=== PATIENT | female | born 1965 | race Caucasian/White ===

== ENCOUNTER → 2018-04-24 15:09 | Outpatient (CLI) | payer BC, SELFPAY ==
--- NOTE | 2018-04-24 | DI.CT.S_ITS ---
PROCEDURE: CT LUMBAR SPINE WO CON INDICATIONS: LUMBAR SPINE PAIN TECHNIQUE: Noncontrast 3 mm thick sections acquired from the T12 level to the sacrum. Sagittal and coronal reformats were constructed. For radiation dose reduction, the following was used: automated exposure control. COMPARISON: [facility], MR, MR LUMBAR SPINE WITHOUT CONTRAST, 04/17/2018, 10:46. FINDINGS: Image quality: Excellent. Bones: There is approximate 82% compression deformity at L3 with minimal retropulsion, unchanged. There is moderate to severe disc space narrowing at L2-3 and L3-4. Trace retrolisthesis is present of L4 on L5. Posterior osteophytes are present at T11-12 and T12-L1. Disc bulges are present all levels of the lumbar spine. There is mild to moderate spinal stenosis at L1-L2, L5-S1. It is noted there is moderate to severe spinal stenosis at T12-L1, severe at L1-2 secondary to posterior osteophytes. Mild bilateral foraminal narrowing is present T11-T12, moderate left, mild right T12-L1, moderate bilateral L4-5 and severe bilateral L5-S1 with slight effacement on the left. Multilevel facet hypertrophy is present. Soft tissues: No retroperitoneal masses or hematomas. Visualized aorta is normal in caliber. IMPRESSION: 1. Unchanged L3 compression deformity as described above. 2. Multiple degenerative changes including disc bulges, spinal stenosis and foraminal narrowing overall most severe at T11-12, T12-L1 and L5-S1. It is noted that significant posterior osteophytes are causing prominent spinal stenosis at T12-L1 and T11-12. Dictated by: Ayesha Harris M.D. on 04/24/2018 at 17:20 Approved by: Ayesha Harris M.D. on 04/24/2018 at 17:26
== END ==
PROVIDERS: Visit Provider Orthopaedic Surgery Orthopaedic Surgery of the Spine
DX: M54.5 Low back pain (principal); M47.814 Spondylosis without myelopathy or radiculopathy, thoracic region; M47.815 Spondylosis without myelopathy or radiculopathy, thoracolumbar region; M47.817 Spondylosis without myelopathy or radiculopathy, lumbosacral region; M48.04 Spinal stenosis, thoracic region; M48.05 Spinal stenosis, thoracolumbar region
CPT/HCPCS: 72131

== ENCOUNTER → 2018-05-12 15:42 | Outpatient (CLI) | payer BC, SELFPAY ==
[2018-05-12 16:46] LABS: Add Manual Diff / Slide Review NO; Basophils Percent Auto 0.7 % (0-2); Eosinophils Percent Auto 1.5 % (2-4); Hematocrit 37.2 % (36-46); Hemoglobin 12.6 g/dL (12.0-16.0); Lymphocytes Percent Auto 42.2 % (25-40); Mean Corpuscular HGB Conc 33.7 % (30-36); Mean Corpuscular Hemoglobin 33.1 PG (26-34); Monocytes Percent Auto 7.4 % (3-14); Neutrophils Absolute Auto 3300 /uL (1500-7000); Neutrophils Percent Auto 48.2 % (50-75); Platelet Count 253 X10^3/uL (150-400); Red Cell Distribution Width 12.1 % (11.6-14.8); White Blood Cell Count 6.9 X10^3/uL (4.5-11.0)
[2018-05-12 17:17] LABS: Blood Urea Nitrogen 10 mg/dL (7-17); Calcium 9.6 mg/dL (8.4-10.2); Carbon Dioxide 28 mmol/L (22-32); Chloride 101 mmol/L (98-107); Estimated Glomerular Filt Rate 57.8 mL/min (>60); Glucose 96 mg/dL (70-100); HEMOLYSIS < 15 (0-50); Potassium 3.8 mmol/L (3.4-5.1); Sodium 140 mmol/L (137-145)
== END ==
PROVIDERS: Visit Provider Orthopaedic Surgery Orthopaedic Surgery of the Spine
DX: Z01.811 Encounter for preprocedural respiratory examination (principal)
CPT/HCPCS: 36415; 80048; 85025; 93005

== ENCOUNTER 2018-05-26 10:44 | Inpatient (IN) | payer BC, SELFPAY ==
[2018-05-12 08:47] VITALS: BMI 34.2
[2018-05-26] VITALS (15 sets, daily range): BP systolic 100–155; BP diastolic 56–93; PULSE 65–93; RESP 9–20; TEMP 36.4–36.8; O2SAT 93–100; BMI 34.2
--- NOTE | 2018-05-26 | DI.RAD.S_ITS ---
PROCEDURE: XR LUMBAR SPINE 2-3V INDICATIONS: L4-5 L5-S1 TLIF TECHNIQUE: Fluoroscopic images were obtained during an operative procedure and submitted for interpretation following the completion of the procedure. COMPARISON: [facility], [place], CT LUMBAR SPINE WO CON, 04/24/2018, 15:09. FINDINGS: These fluoroscopic images were performed for intraoperative localization. On these images, bilateral pedicle screws are seen at the L4, L5, and S1 levels. Vertical fixation rods are seen. Disc spacers are seen at L4-L5 and L5-S1. Please correlate with intraoperative findings. IMPRESSION: Normal intraoperative examination. Dictated by: Rigoberto Fraire M.D. on 05/26/2018 at 15:59 Approved by: Rigoberto Fraire M.D. on 05/26/2018 at 16:01
[2018-05-26] MEDS: LACTATED RINGERS 1,000 ML 42 ML IV ×3 (11:33→17:35)
[2018-05-26] MEDS: FAMOTIDINE 20 MG/50 ML PIGGYBACK 200 MG IV (11:34)
--- NOTE | 2018-05-26 12:32 | PM.PREOP ---
Pre-operative Note Interval Note History & Physical reviewed/Exam performed by Physician: Yes Changes to H&P: No
[2018-05-26] MEDS: HYDROCODONE/ACET 5/325 TABLET 2 TAB PO (12:54)
--- NOTE | 2018-05-26 12:54 | SUR.PREOP ---
Medicated with norco x [address] schultz's [id number].
[2018-05-26] MEDS: CEFAZOLIN 2 GM/100 ML FROZ.PIGGY IV ×2 (13:00→17:02)
--- NOTE | 2018-05-26 13:41 | SUR.OPER ---
Prone on spine table, head in foam head support, padded chest and pelvic supports, gel pad at knees, lower legs supported by pillows; nipples, genitalia and toes free of pressure, arms secured on foam padded arm boards at <90 degrees abduction. Tape over blanket at thigh secured to table.
[2018-05-26] MEDS: BUPIVACAINE LIPOSOME 266 MG/20 ML VIAL INJ (14:27)
[2018-05-26] MEDS: BUPIVACAINE 0.25% W/ EPI VIAL 30 ML INJ (14:28)
--- NOTE | 2018-05-26 17:20 | P.OP_ITS ---
Operative Date/Time/Diagnoses Date of procedure: 05/26/18 Time of procedure: 13:13 Pre-op diagnosis: 1. L4-5, L5-S1 history of laminectomy 2. L4-5 pseudoarthrosis with hx of fusion 3. L4-5, L5-S1 spinal stenosis Post-op diagnosis: same Procedure & Clinicians Procedure: 1. L4-5, L5-S1 Postero-lateral and posterior interbody fusion 2. L4-5, L5-S1 interbody cage placement. 3. L4-5, L5-S1 decompressive laminectomy with bilateral facetecomies 4. L4-5, L5-S1 Posterior segmental instrumentation 5. [place] of bone marrow from iliac crest 6. Utilization of microsurgical technique and operating microscope Same procedure as scheduled: Yes Indications: Patient has been having chronic back pain and worsening lumbar radiculopathy. Patient had previous fusion decompression and then hardware removal surgery multiple times with worsening pain difficulty walking. Patient failed multiple conservative management with worsening pain weakness and numbness in her lower extremity. Patient has been having difficulty performing activity of daily living. After discussing risks benefits of treatment options, patient elected proceed with surgery. Surgeon: Jad Bahena Van Helper: Katerina Roberts Click Yes if Unassisted: No Anesthesia Type: General Operative Notes Closure Type: primary Specimen(s): none sent Implants & Drains: Globus revolve screws, Rise cages Applied: catheter Estimated Blood Loss (mL): 100 Blood products transfused: none Procedure in detail: Patient was seen in the preoperative area. Risks and benefits of the surgery was discussed with the patient. Informed consent was obtained from the patient and placed in the chart. Surgical site was marked. Patient was taken to the operative room. General anesthesia was administered. Prophylactic antibiotic was given to the patient less than 30 min before the incision was made. Patient was placed into a prone position on the Moises table. Patient's back was then prepped and draped in the sterile fashion. Time- out was performed at this time. Using AP and lateral C-arm imaging the interval between L4-S1 was identified and marked on patient's back. A 2 inch incision 2 in from midline was made on the left side first. The fascia was incised in line with skin incision. Globus MARS retractors was placed inside the incision and docked onto the L4 and L5 lamina. Using microsurgical technique and operating microscope, a L4 and L5 laminectomy and L4-5 L5-S1 facetectomy was performed using a Kerrison rongeur. Patient was found to have significant amount of attempted fusion mass L4-5 level during the process of decompression. The fusion bone was debrided until the facet joint was visualized at L4-5 level. Upon stressing the facet joint was found to be mobile and the pseudoarthrosis at L4-5 was confirmed. During the process of decompression more than 75% of bilateral L4-5 L5-S1 facets were removed in order to decompress the spinal canal and the lateral recess. The L4- 5 L5-S1 level was grossly unstable after the decompression was completed and requiring the fusion procedure. The disc space at L4-5, L5-S1 was identified. And a total diskectomy was performed at L4-5, L5-S1 level. The endplates were decorticated using a rasp and shaver. The total diskectomy and decortication was performed at L4-5, L5-S1 level in order to to accomplish a L4-5, L5-S1 fusion. The local bone from the laminectomy and facetectomy was saved for local bone grafting. After the total diskectomy and decortication was completed , Globus viacell bone graft material was combined with local bone that was harvested earlier. At this time, a separate skin is incision was made over the iliac crest. A Jamshidi needle was inserted into the iliac crest through a separate skin incision. 5 cc of bone marrow aspiration was obtained through the separate skin incision using a Jamshidi needle from the iliac crest. The bone marrow aspiration was combined with local bone and the via cell bone grafting material. The bone grafting material was placed into the L4-5, L5-S1 interbody space along with two cages, one expandable cage at each level. The cages were expanded to their maximum height using the torque limiting screwdriver. At this time a mirror image incision was made on the right side. The fascia was incised in line with the skin incision. Globus MARS retractor was inserted and docked onto the L4-5, L5-S1 posterolateral gutter. Using the power drill, posterior-lateral decortication was performed at L4-5, L5-S1 level until bleeding cortical bone was identified. The remaining bone grafting material was placed into the L4-5 L5-S1 posterior lateral gutter he order to accomplish posterolateral fusion at the L4-5 L5-S1 levels. Using the double C-arm technique, pedicle screws were placed into the L4, L5, S1 pedicles bilaterally. This was done by placing the Jamshidi needle into the pedicles, then placing the guidewires over the Jamshidi needle, and finally placing the cannulated screws over the guidewires bilaterally. After the pedicle screws were placed, 2 titanium rods was locked into the heads of the pedicle screws using locking caps and torque limiting screwdriver. Total 6 pedicles screws were placed. After all the hardware was placed, and confirmed with AP and lateral C-arm imaging, the wound was then irrigated with sterile normal saline and packed with Ray-Deepika gauze for 3 min to accomplish hemostasis. After the gauze was removed the deep fascia was closed with #1 Vicryl suture. The subcutaneous layer was closed with 2-0 Vicryl. The skin was closed with skin fe. Patient tolerated the procedure well. There were no complications. Complications: none Condition: stable Disposition: PACU Plan for aftercare: Admit to inpatient hospital
[2018-05-26] MEDS: LORazepam 2 MG/ML SYRINGE 0.25 MG IV ×2 (17:22→17:50)
[2018-05-26] MEDS: hydrOXYzine 50 MG/ML INJ 25 MG IM (17:31)
--- NOTE | 2018-05-26 18:04 | SUR.PHASEI ---
Ekg done per Dr. Irizarry. Dr. Irizarry shown EKG results, no new orderrs.
--- NOTE | 2018-05-26 18:40 | SUR.PHASEI ---
Pt transferred to the floor on o2 and pulse ox. Report to Sarah. VS stable. Sats 94-99% RA. IV saline locked. Azul and DAVE checked with RN. Kyree funze. Belongings bag with patient. Pt reporting pain, able to joke with staff.
[2018-05-26] MEDS: HYDROMORPHONE 0.5 MG INJ IV ×2 (18:55→20:43)
[2018-05-26] MEDS: SODIUM CHLORIDE 0.9% 1,000 ML 100 ML IV (18:58)
--- NOTE | 2018-05-26 20:36 | PC.NURSE ---
Evening shift 1829: Pt arrived on unit drowsy. Safe hand off from CLIENT EXPERIENCE SPECIALIST. Safety checks done. Pt is a/ox4 but closes eyes during conversation. Pt currently on RA. Ice pack applied to incision. 1854: Pain medication given by WILIAM Arce. Pt O2 decreased to high 80s low 90s. Pt placed on 2L NC. 1929: Pt weaned off of NC 1950: Pt placed back on 2L NC after O2 decreased to mid 80s. Pt continues to complain of 10/10 pain. Education done on opiates and respiratory depression. Pt stated she doesn't care if she stops breathing. Reenforced we will not have her in respiratory distress r/t narcotics. Pt left alone and drifted off to sleep after a couple of minutes.
[2018-05-26] MEDS: PRAVASTATIN 20 MG TABLET PO (21:26)
[2018-05-26] MEDS: hydrOXYzine pamoate 25 MG CAPSULE PO (21:26)
[2018-05-26] MEDS: SENNOSIDES 8.6 MG TABLET 17.2 MG PO (21:26)
[2018-05-26] MEDS: DOCUSATE 100 MG CAPSULE PO (21:26)
[2018-05-26] MEDS: OXYCODONE IR 5 MG TABLET 10 MG PO (21:29)
[2018-05-27] VITALS (7 sets, daily range): BP systolic 111–128; BP diastolic 45–71; PULSE 86–98; RESP 15–20; TEMP 36.9–37.8; O2SAT 95–100
[2018-05-27] MEDS: ACETAMINOPHEN 325 MG TABLET 650 MG PO (00:15)
[2018-05-27] MEDS: OXYCODONE IR 5 MG TABLET 10 MG PO ×2 (00:29→03:41)
[2018-05-27] MEDS: hydrOXYzine pamoate 25 MG CAPSULE PO ×2 (01:43→06:08)
[2018-05-27] MEDS: CEFAZOLIN 2 GM/100 ML FROZ.PIGGY IV ×2 (01:44→11:27)
[2018-05-27] MEDS: HYDROMORPHONE 0.5 MG INJ IV (02:20)
[2018-05-27] MEDS: SODIUM CHLORIDE 0.9% 1,000 ML 100 ML IV ×2 (06:00→16:54)
[2018-05-27] MEDS: LEVOTHYROXINE 75 MCG TABLET PO (06:08)
[2018-05-27 06:17] LABS: Hematocrit 29.9 % (36-46); Hemoglobin 10.4 g/dL (12.0-16.0)
--- NOTE | 2018-05-27 08:35 | PM.PNPO.1 ---
Subjective Date Patient Seen: 05/27/18 Time Patient Seen: 08:35 Interval history: POD #1 s/p lumbar fusion with Dr. Bahena. Patient states she had significant pain last night. Her back pain is an 8/10 this AM. Prior to surgery she was on [place] 10mg. She notes left leg numbness when prior to surgery it was tingling. She has her landry in place. She has not been up with PT yet. Exam Vital Signs (past 8 hours): - 05/27/18 05:30 05/27/18 07:44 Temperature 98.4 F 98.5 F Pulse Rate 86 94 H Respiratory Rate 20 16 Blood Pressure 114/45 L 116/70 Pulse Oximetry 100 96 Oxygen Delivery Method Nasal Cannula Oxygen Flow Rate 2 Narrative Exam Narrative: Patient lying in bed in NAD. She is alert and oriented X3. Dressing on back is CDI. Calves are soft, compressible, and nontender bilaterally. Pulses are symmetrical. Numbness at left lateral foot. Objective Labs Result Diagrams: 05/27/18 05:43 Labs: Laboratory Results - last 24 hr 05/27/18 05:43 Hgb 10.4 L Hct 29.9 L Assessment & Plan Post-op (1) S/P lumbar fusion: Current Visit: Yes Status: Acute Postoperative Procedures Operation Date: 05/26/18 12:45 Actual Procedures Side Surgeon p L4-5, L5-S1 TLIF w/Posterior Instru. Jad Bahena MD Patient will ambulate with PT today. No excessive bending, lifting, or twisting. Pain medication changed to dilaudid, increased vistaril to 50mg, and tylenol scheduled. Patient will likely DC in next 2-3 days if mobilizing safely and pain adequately controlled. Quality VTE Deep Vein Thrombosis/Pulmonary Embolism Present on Admission: No
[2018-05-27] MEDS: HYDROMORPHONE 2 MG TABLET 4 MG PO ×3 (09:24→20:43)
--- NOTE | 2018-05-27 10:52 | PC.NURSE ---
Pt droswy, moaning when entering the room attentive at bedside. Pt wanting pain meds, stating pain is 10/10. Discussed plan of care and meds for the day. New pain med orders written and implemented. Pt postioned to comfort. heading home for a time pt positioned to the right side high on hip ice to back and warm blankets to front. Pillows applied as asked by pt. states pt more restfull.
--- NOTE | 2018-05-27 11:27 | PT.IPTN ---
Current Diagnoses Spondylolisthesis, lumbar region (05/26/18) Other spondylosis with radiculopathy, lumbar region (05/26/18) Spinal stenosis, lumbar region without neurogenic claudication (05/26/18) Arthrodesis status (05/26/18) Surgery Performed Operation Date: 05/26/18 12:45 Actual Procedures p L4-5, L5-S1 TLIF w/Posterior Instru. - Jad Bahena MD Physical Therapy Treatment Note M2 PT-IP Current Condition Start: 05/27/18 14:21 Freq: NEEDED Status: Active Protocol: Document 05/27/18 11:27 AB (Rec: 05/27/18 14:27 AB [id number]) Physical Therapy Current Condition Current Condition Evaluation Date 05/27/18 Treatment Diagnosis s/p L4-5, L5S1 posterolat/post interbody fusion/lami; difficulty in walking Onset Date 05/26/18 Precautions Lumbar Precautions Log Roll No Twisting Limit Bending Lifting Restriction of 10 lbs Gait Belt above Incisional Area M3 PT-IP Subjective Start: 05/27/18 14:21 Freq: NEEDED Status: Active Protocol: Document 05/27/18 11:27 AB (Rec: 05/27/18 14:27 AB [id number]) Subjective Physical Therapy Visit Type Type Patient Refusal Notes pt refused PT eval this morning due to c/o 12/10 pain despite pain meds. agreed to do PT this afternoon after next pain meds given. obtained pt's PLOF and home set up.
[2018-05-27] MEDS: ASCORBIC ACID 500 MG TABLET PO ×2 (11:28→22:26)
[2018-05-27] MEDS: ACETAMINOPHEN 325 MG TABLET 975 MG PO ×3 (11:28→20:44)
[2018-05-27] MEDS: DOCUSATE 100 MG CAPSULE PO ×2 (11:28→22:26)
[2018-05-27] MEDS: LOSARTAN 50 MG TABLET 100 MG PO (13:26)
[2018-05-27] MEDS: hydroCHLOROthiazide 25 MG TABLET PO (13:27)
[2018-05-27] MEDS: HYDROMORPHONE 2 MG TABLET PO (13:27)
--- NOTE | 2018-05-27 13:30 | PT.IIE ---
Current Diagnoses Spondylolisthesis, lumbar region (05/26/18) Other spondylosis with radiculopathy, lumbar region (05/26/18) Spinal stenosis, lumbar region without neurogenic claudication (05/26/18) Arthrodesis status (05/26/18) Surgery Performed Operation Date: 05/26/18 12:45 Actual Procedures p L4-5, L5-S1 TLIF w/Posterior Instru. - Jad Bahena MD Surgical History (Last Updated 05/12/18 @ 09:12 by Malini Brito RN) History of bilateral carpal tunnel release (Acute) History of delivery (Acute) History of lumbar laminectomy (Acute ~1985) S/P lumbar fusion (Acute ~1979) Medical History (Last Updated 05/12/18 @ 09:12 by Malini Brito RN) Granuloma annulare (Acute) H/O: hysterectomy (Acute ~2007) HTN (hypertension) (Acute) Hyperlipidemia (Acute) Hypothyroidism (Acute) Numbness and tingling (Acute) Physical Therapy Inpatient Evaluation/Re-Eval M1 PT/OT-IP Prior Functional Status Start: 05/27/18 14:21 Freq: NEEDED Status: Active Protocol: Document 05/27/18 13:30 AB (Rec: 05/27/18 15:15 AB [id number]) Medical Review Prior Functional Status Medical History Reviewed Yes Communication able to make needs known Mobility and Gait stated that she is independent with all mobilities and ambulation without AD Social History Household Members spouse Living Arrangements RV Number of Floors (Floors) One Floor Number of Stairs To Enter/Railing? stated that she lives in a motor home with 5 steps to enter with L rail ascending; motor home is parked at her mother's lot and pt's mother stated that she can help pt as well. Home Environment High Toilet Tub/Shower Home Equipment Front Wheel Walker Grab Bars Near Toilet Additional Social History Comment pt's mother stated that she has a FWW for pt to use. ( will bring it tomorrow for adjustment or to determine if appropriate for pt) M2 PT-IP Current Condition Start: 05/27/18 14:21 Freq: NEEDED Status: Active Protocol: Document 05/27/18 13:30 AB (Rec: 05/27/18 15:12 AB [id number]) Physical Therapy Current Condition Current Condition Evaluation Date 05/27/18 Treatment Diagnosis L4-5, L5S1 posterolateral/last fusion/lami; diff in walking Onset Date 05/26/18 Precautions Lumbar Precautions Log Roll No Twisting Limit Bending Lifting Restriction of 10 lbs Gait Belt above Incisional Area Other Precautions check BP M3 PT-IP Subjective Start: 05/27/18 14:21 Freq: NEEDED Status: Active Protocol: Document 05/27/18 13:30 AB (Rec: 05/27/18 15:12 AB [id number]) Subjective Physical Therapy Visit Type Type Initial Evaluation Visit Start Time 13:30 Visit Stop Time 14:20 Total Visit Minutes 50 Number of REFLECTOR DRILLER AND DEBURRER Visits 0 Physical Therapy Visit Comments Patient Comments pt agreed to sit up Therapy Pain Assessment Pain When Pain Assessed At Rest Pain Present Pain Present Pain Reported Location Lower Back Intensity 5 Scale Used increase with movement Pain Behaviors Calling Out Guarding Pain Management Techniques Apply Cold Modification of Treatment Re-positioning Timing of Activity with Medications M4 PT-IP Mobility and Gait Start: 05/27/18 14:21 Freq: NEEDED Status: Active Protocol: Document 05/27/18 13:30 AB (Rec: 05/27/18 15:12 AB [id number]) PT-Bed Mobility Assessment Rolling Type of Rolling Log Rolling Level of Assist Maximal Assistance 2 Person Assistance Supine to Sit Supine to Sit Total Assistance 2 Person Assistance Bedrails Sit to Supine Sit to Supine Total Assistance 2 Person Assistance Bedrails Scooting Scooting to Edge of Bed Dependent Scooting Up and Down in Bed Dependent PT-Transfer Assessment Comments Mobility Comments BP supine: 102/64. pt with c/o increase back pain with mobility with increase muscle guarding requiring total A with log rolling and supine to sit. pt sat on EOB with initial max A. repostioned pt and was able sit min A and cues. c/o dizziness and sweating. BP checked: 56/36. assisted pt back in bed requiring total A x 2 log roll sit to supine. required total A x 2 for scooting and positioning in bed. BP in supine with LE elevated: 96/55 . ice pack provided. call light within reach. BP checked again: 102/73. educated pt on importance of being upright and to try to have HOB elevated later on. pt agreed. Gait Assessment Comments Gait Comments unable at this time PT-Balance Assessment Sitting Balance and Reactions Static Sitting Balance Ability Fair Dynamic Sitting Balance Ability Poor M5 PT-IP Objective Assessments Start: 05/27/18 14:21 Freq: NEEDED Status: Active Protocol: Document 05/27/18 13:30 AB (Rec: 05/27/18 15:12 AB [id number]) Orientation Orientation/Cognition Level of Alertness Alert Orientation Name Age Birthday Place Situation Language Function Ability No Deficits Noted Safety Awareness Decreased Safety Awareness Gross Range of Motion Lower Extremity ROM Assessment Within Functional Limits Strength Lower Extremity Strength Assessment Bilaterally Impaired Hip 3-/5 Knee 3-/5 Comments Strength Comments pain limiting movement on BLE Sensation Assessment Sensation Gross Sensation Left LE Impaired Sensation Description Numbness Comments Sensation Comments c/o numbness on RLE M6 PT-IP Treatment Start: 05/27/18 14:21 Freq: NEEDED Status: Active Protocol: Document 05/27/18 13:30 AB (Rec: 05/27/18 15:12 AB [id number]) Physical Therapy Treatment Education Education Provided Precautions Weight Bearing Status Post-Op Packet Safety M7 PT-IP Assessment and Plan Start: 05/27/18 14:21 Freq: NEEDED Status: Active Protocol: Document 05/27/18 13:30 AB (Rec: 05/27/18 15:12 AB [id number]) PT Summary Assessment and Plan Potential Rehabilitation Potential Fair Status of Condition at Evaluation Evolving Summary Impairments Pain ROM Strength Balance Coordination Sensation Tone Bed Mobility Transfers Gait Activity Tolerance Assessment Summary pt requiring total A x 2 with mobility at this time with c/o increase pain during movement . pt unable to tolerate much activity today with decrease in BP noted in sitting on EOB 56/36. d/c plan depending on progress but pt at this time will require SNF rehab to improve strength and function. informed pt and spouse regarding SNF recommendation at this time and agreed. will continue to assess. Goals Bed Mobility Goal Standby Assistance Transfer Goal Standby Assistance Front Wheeled Walker Gait Goal Standby Assistance Front Wheel Walker Gait Distance 150 Other Goals up/down 5 steps with L rail ascending CGA Days to Meet Goals 5 Frequency of Treatment Frequency Of Treatment Twice a Day Treatment Plan Physical Therapy Treatment Plan Bed Mobility Training Transfer Training Gait Training Therapeutic Exercise Balance Retraining Post Op Education Discharge Planning Hot or Cold Pack Neuromuscular Re-ed Coordination Retraining Manual Therapy Other Recommendations and Next Treatment transfers, ambulation Focus Recommendations To Nursing Amount of Assist Needed PT/OT Assist Only Mechanical Lift Discharge Recommendations PT Discharge Recommendations SNF Rehab
--- NOTE | 2018-05-27 15:03 | CM.IDA ---
Attempted DCP Assessment today; pt loudly complaining of pain in room; spouse present. According to nurse coordinator Ivonne, w/ PMH that includes ETOH and narcotic dependence. Pain control has been an issue so far. Pt refused PT today. Will plan another attempt at assessment. Likely home w/spouse when pain controlled and medically cleared. [facility] Discharge Planning/Care Management CM Discharge Assessment Start: 05/27/18 15:00 Freq: Status: Active Protocol: Document 05/27/18 15:00 LUIS (Rec: 05/27/18 15:03 LUIS [id number]) Discharge Planning Assessment Assigned Safety Representative JACKY Horton DPOA/Assigned Designee Name Carmelo Montes De Oca, spouse Contact Information [phone] Advance Directives? No: Declines further information History Provided By Patient Prior Living Arrangements RV Household Members spouse Independent with ADL's PLOF ? Is patient alert and oriented? Yes Comment Unknown at this time. Hopefully DC home to RV w/ spouse to assist. Discharge Plan Home Transportation Arrangement Spouse Review Status In Process
--- NOTE | 2018-05-27 16:22 | OT.IP.EVAL ---
Current Diagnoses Spondylolisthesis, lumbar region (05/26/18) Other spondylosis with radiculopathy, lumbar region (05/26/18) Spinal stenosis, lumbar region without neurogenic claudication (05/26/18) Arthrodesis status (05/26/18) Surgery Performed Operation Date: 05/26/18 12:45 Actual Procedures p L4-5, L5-S1 TLIF w/Posterior Instru. - Jad Bahena MD Past Medical History (Last Updated 05/12/18 @ 09:12 by Malini Brito RN) Granuloma annulare (Acute) H/O: hysterectomy (Acute ~2007) HTN (hypertension) (Acute) Hyperlipidemia (Acute) Hypothyroidism (Acute) Numbness and tingling (Acute) Surgical History (Last Updated 05/12/18 @ 09:12 by Malini Brito RN) History of bilateral carpal tunnel release (Acute) History of delivery (Acute) History of lumbar laminectomy (Acute ~1985) S/P lumbar fusion (Acute ~1979) Occupational Therapy Inpatient Evaluation/Re-Eval M1 PT/OT-IP Prior Functional Status Start: 05/27/18 14:21 Freq: NEEDED Status: Active Protocol: Document 05/27/18 13:30 AB (Rec: 05/27/18 15:15 AB [id number]) Medical Review Prior Functional Status Medical History Reviewed Yes Communication able to make needs known Mobility and Gait stated that she is independent with all mobilities and ambulation without AD Social History Household Members spouse Living Arrangements RV Number of Floors (Floors) One Floor Number of Stairs To Enter/Railing? stated that she lives in a motor home with 5 steps to enter with L rail ascending; motor home is parked at her mother's lot and pt's mother stated that she can help pt as well. Home Environment High Toilet Tub/Shower Home Equipment Front Wheel Walker Grab Bars Near Toilet Additional Social History Comment pt's mother stated that she has a FWW for pt to use. ( will bring it tomorrow for adjustment or to determine if appropriate for pt) M1 PT/OT-IP Prior Functional Status Start: 05/27/18 15:50 Freq: NEEDED Status: Active Protocol: Document 05/27/18 15:50 [facility] (Rec: 05/27/18 16:22 [facility] [id number]) Medical Review Prior Functional Status Medical History Reviewed Yes Communication able to make needs known Mobility and Gait stated that she is independent with all mobilities and ambulation without AD Activities of Daily Living and IADL's Pt states able to do all for herself prior. Social History Household Members spouse Living Arrangements RV Number of Floors (Floors) One Floor Number of Stairs To Enter/Railing? stated that she lives in a motor home with 5 steps to enter with L rail ascending; motor home is parked at her mother's lot and pt's mother stated that she can help pt as well. Home Environment High Toilet Tub/Shower Home Equipment Front Wheel Walker Grab Bars Near Toilet Additional Social History Comment pt's mother stated that she has a FWW for pt to use. ( will bring it tomorrow for adjustment or to determine if appropriate for pt) M2 OT-IP Current Condition Start: 05/27/18 15:50 Freq: Status: Active Protocol: Document 05/27/18 15:50 [facility] (Rec: 05/27/18 16:22 [facility] [id number]) Occupational Therapy Current Condition Current Condition Evaluation Date 05/27/18 Treatment Diagnosis Lumbar Stenosis Diagnosis Onset Date 05/26/18 M3 OT- IP Subjective and Pain Start: 05/27/18 15:50 Freq: Status: Active Protocol: Document 05/27/18 15:50 [facility] (Rec: 05/27/18 16:22 [facility] [id number]) OT- Subjective Occupational Therapy Visit Type Type Initial Evaluation Visit Start Time 13:37 Visit Stop Time 14:12 Total Visit Minutes 25 Occupational Therapy Visit Comments Patient Comments Pt a bit apprehensive to get up but willing to try. Pt insistent on not being on her back and wanting to start getting up from sidelying. OT Pain Assessment Pain When Pain Assessed At Rest Pain Present Pain Present Pain Reported Location Lower Back Intensity 5 M4 OT- IP ADL's Start: 05/27/18 15:50 Freq: Status: Active Protocol: Document 05/27/18 15:50 [facility] (Rec: 05/27/18 16:22 [facility] [id number]) OT ADL-Dressing General Eval Lower Body Dressing Ability Total Assistance Comments OT Dressing Comments Total assist for all LB dressing needs. M6 OT- IP Functional Cognition Start: 05/27/18 15:50 Freq: Status: Active Protocol: Document 05/27/18 15:50 [facility] (Rec: 05/27/18 16:22 [facility] [id number]) Cognitive Factors Limiting Selfcare Function Cognitive Ability Level of Alertness Alert Patient Orientation Name Place Situation Attention Span Ability Capable of Focused Attention Capable of Sustained Attention Ability to Follow Commands Able to Follow One Step Commands Cognitive Comments Cognitive Assessment Comments Pt able to follow one step directions, however due to pain having trouble following multiple directions. OT- Vision and Hearing OT- Hearing Assessment OT- Hearing Assessment WFL M7 OT- IP Mobility and Balance Start: 05/27/18 15:50 Freq: Status: Active Protocol: Document 05/27/18 15:50 [facility] (Rec: 05/27/18 16:22 [facility] [id number]) OT- Bed Mobility Assessment Rolling Type of Rolling Roll to Right Level of Assistance Maximum Assistance 2 Person Assistance Supine to Sit Supine to Sit Assist Total Assistance 2 Person Assistance OT-Transfer Assessment Comments Mobility Comments Pt only to tolerate sitting on the edge of the bed. Supine 102/73, sitting 56/36 and then immediately placed back in bed. Pt back up to 102/64. Pt needing MAX A x1 to sit at edge of bed initially. OT- Balance Assessment Sitting Balance and Reactions Static Sitting Balance Ability Poor M8 OT- IP Objective Assessments Start: 05/27/18 15:50 Freq: Status: Active Protocol: Document 05/27/18 15:50 [facility] (Rec: 05/27/18 16:22 [facility] [id number]) OT Strength Comments Strength Comments Not able to assess due to decreased BP. M9 OT- IP Assessment and Plan Start: 05/27/18 15:50 Freq: Status: Active Protocol: Document 05/27/18 15:50 [facility] (Rec: 05/27/18 16:22 [facility] [id number]) OT Summary Assessment and Plan Potential Rehabilitation Potential Fair Analytic Complexity at Evaluation Low Summary OT Impairments Pain Strength Balance Functional Cognition Functional Mobility Grooming Dressing Toileting Bathing Toilet Transfers Shower Transfers Progress Towards Goals Slow Progress due to Pain Slow Progress due to Medical Issues Slow Progress due to Activity Tolerance Assessment Summary Pt low complexity and main barrier is steps, pain, and low BP. Pt only able to sit at the edge of the bed at this time. Therefore at this point in time, pt would benefit from skilled rehab current care is too great from her family to be able to assist. Goals Grooming Goal Moderate Assistance Dressing Goal Moderate Assistance Toileting Goal Moderate Assistance Bathing Goal Moderate Assistance Toilet Transfer Goal Moderate Assistance Shower Transfer Goal Moderate Assistance Patient/Caregiver Education Goal Demonstrate Post-Op Precautions Caregiver Independent Assisting Patient Days to Meet Goals 15 Frequency of Treatment Frequency Of Treatment Once a Day Treatment Plan OT Treatment Plan ADL Training Functional Cognition Training Functional Mobility Patient/Family Education Discharge Planning Other Treatment Recommendations and Next Transfer with [place]WW [place] [facility] [place] with Treatment Focus MODA X 2. Discharge Recommendations OT Discharge Recommendations SNF Rehab Home Equipment Needs To be determined pending progress.
[2018-05-27] MEDS: hydrOXYzine pamoate 25 MG CAPSULE 50 MG PO ×2 (16:53→20:43)
[2018-05-27] MEDS: FERROUS SULFATE 325 MG TABLET PO (16:54)
[2018-05-27] MEDS: MAGNESIUM HYDROXIDE 30 ML UDC PO (19:19)
[2018-05-27] MEDS: PRAVASTATIN 20 MG TABLET PO (22:26)
[2018-05-27] MEDS: SENNOSIDES 8.6 MG TABLET 17.2 MG PO (22:26)
[2018-05-28] VITALS (7 sets, daily range): BP systolic 91–105; BP diastolic 54–61; PULSE 71–88; RESP 18–20; TEMP 36.6–37.6; O2SAT 92–98
[2018-05-28] MEDS: hydrOXYzine pamoate 25 MG CAPSULE 50 MG PO ×6 (00:47→23:35)
[2018-05-28] MEDS: HYDROMORPHONE 2 MG TABLET 4 MG PO ×2 (00:47→05:01)
[2018-05-28] MEDS: LEVOTHYROXINE 75 MCG TABLET PO (05:01)
[2018-05-28 06:00] LABS: Hematocrit 29.5 % (36-46); Hemoglobin 10.2 g/dL (12.0-16.0); Mean Corpuscular HGB Conc 34.6 % (30-36); Mean Corpuscular Hemoglobin 33.4 PG (26-34); Mean Corpuscular Volume 96.4 fL (80-100); Platelet Count 179 X10^3/uL (150-400); Red Blood Cell Count 3.06 X10^6/uL (4.0-5.2); Red Cell Distribution Width 12.3 % (11.6-14.8); White Blood Cell Count 8.7 X10^3/uL (4.5-11.0)
[2018-05-28] MEDS: HYDROMORPHONE 2 MG TABLET PO ×3 (08:25→19:48)
[2018-05-28] MEDS: ACETAMINOPHEN 325 MG TABLET 975 MG PO ×3 (08:25→20:48)
[2018-05-28] MEDS: FERROUS SULFATE 325 MG TABLET PO ×2 (08:26→17:44)
[2018-05-28] MEDS: hydroCHLOROthiazide 25 MG TABLET PO (08:27)
[2018-05-28] MEDS: LOSARTAN 50 MG TABLET 100 MG PO (08:27)
[2018-05-28] MEDS: ASCORBIC ACID 500 MG TABLET PO ×2 (08:27→20:50)
[2018-05-28] MEDS: DOCUSATE 100 MG CAPSULE PO ×2 (08:27→20:48)
[2018-05-28] MEDS: OXYCODONE ER 10 MG TAB PO ×2 (08:28→20:49)
[2018-05-28] MEDS: OXYCODONE IR 10 MG TABLET PO ×5 (08:38→23:35)
--- NOTE | 2018-05-28 10:19 | PM.PN.1 ---
Exam Vital Signs (past 8 hours): - 05/28/18 04:31 05/28/18 08:00 Temperature 98.0 F 98 F Pulse Rate 84 84 Respiratory Rate 18 20 Blood Pressure 104/59 L 100/60 Pulse Oximetry 95 92 Oxygen Delivery Method Room Air Oxygen Flow Rate 0 Objective Labs Result Diagrams: 05/28/18 05:41 Labs: Laboratory Results - last 24 hr 05/28/18 05:41 WBC 8.7 RBC 3.06 L Hgb 10.2 L Hct 29.5 L MCV 96.4 MCH 33.4 MCHC 34.6 RDW 12.3 Plt Count 179 Assessment & Plan Plan: Assessment/Plan Narrative: Patient is admitted after surgery. Patient has been stable and progressing with physical therapy. Patient is neurovascularly intact on exam. Patient has no signs or symptoms of DVT. Patient's dressing is clean dry and intact. Plan to discontinue Adorno catheter. Plan for discharge to home tomorrow. Quality VTE Deep Vein Thrombosis/Pulmonary Embolism Present on Admission: No
--- NOTE | 2018-05-28 11:04 | PT.IPTN ---
Current Diagnoses Spondylolisthesis, lumbar region (05/26/18) Other spondylosis with radiculopathy, lumbar region (05/26/18) Spinal stenosis, lumbar region without neurogenic claudication (05/26/18) Arthrodesis status (05/26/18) Surgery Performed Operation Date: 05/26/18 12:45 Actual Procedures p L4-5, L5-S1 TLIF w/Posterior Instru. - Jad Bahena MD Physical Therapy Treatment Note M2 PT-IP Current Condition Start: 05/27/18 14:21 Freq: NEEDED Status: Active Protocol: Document 05/27/18 13:30 AB (Rec: 05/27/18 15:12 AB [id number]) Physical Therapy Current Condition Current Condition Evaluation Date 05/27/18 Treatment Diagnosis L4-5, L5S1 posterolateral/last fusion/lami; diff in walking Onset Date 05/26/18 Precautions Lumbar Precautions Log Roll No Twisting Limit Bending Lifting Restriction of 10 lbs Gait Belt above Incisional Area Other Precautions check BP M3 PT-IP Subjective Start: 05/27/18 14:21 Freq: NEEDED Status: Active Protocol: Document 05/28/18 09:35 [facility] (Rec: 05/28/18 11:04 [facility] [id number]) Subjective Physical Therapy Visit Type Type Treatment Note Visit Start Time 09:35 Visit Stop Time 10:16 Total Visit Minutes 46 Number of TRANSIT PLANNING MANAGER Visits 1 Physical Therapy Visit Comments Patient Comments Pt agreeable to attempt transfer to chair. Therapy Pain Assessment Pain When Pain Assessed During Mobility Pain Present Pain Present Pain Reported Location Lower Back Intensity 5 Pain Behaviors Wincing Pain Management Techniques Apply Cold Modification of Treatment Re-positioning Timing of Activity with Medications M4 PT-IP Mobility and Gait Start: 05/27/18 14:21 Freq: NEEDED Status: Active Protocol: Document 05/28/18 09:35 [facility] (Rec: 05/28/18 11:04 [facility] [id number]) PT-Bed Mobility Assessment Rolling Type of Rolling Log Rolling Roll to Left Level of Assist Moderate Assistance 1 Person Assistance Sit to Supine Sit to Supine Moderate Assistance 1 Person Assistance Head of Bed Elevated Bedrails Scooting Scooting to Edge of Bed Moderate Assistance PT-Transfer Assessment Sit to and From Stand Sit to and from Stand Minimal Assistance 1 Person Assistance Use of Upper Extremities Transfers Transfer Destination Chair Transfer Technique Stand Step Pivot Transfer Ability Level of Assist Minimal Assistance Comments Mobility Comments BP supine 110/67 pt required cues and Mod A x1 for log roll and supine to sit and scooting to EOB, BP sitting on EOB 108/74 w/o complaint of dizziness. Sit-stand Min A and cues for hand placement for safety. BP in standing 112 /61. Gait Assessment Gait Gait Assistance Required: Contact Guard Assist 1 Person Assist Distance (Feet) 25 Able to Maintain Weight Bearing Status Yes During Gait Assistive Devices Assistive Device Gait Belt Front Wheeled Walker Orthotic/Prosthetic Devices or Brace: No Gait Deviations General Gait Pattern Antalgic Decreased Stride Length Decreased Feet Clearance Flexed Trunk Narrow Based Gait Factors Limiting Gait Function Factors Limiting Gait Function Decreased Activity Tolerance Decreased Strength Pain Poor Balance Comments Gait Comments Pt able to ambulate ~25ft CGA with chair follow. Stair Climbing Assessment Comments Stair Climbing Comments not attempted at this time. M5 PT-IP Objective Assessments Start: 05/27/18 14:21 Freq: NEEDED Status: Active Protocol: Document 05/27/18 13:30 AB (Rec: 05/27/18 15:12 AB [id number]) Orientation Orientation/Cognition Level of Alertness Alert Orientation Name Age Birthday Place Situation Language Function Ability No Deficits Noted Safety Awareness Decreased Safety Awareness Gross Range of Motion Lower Extremity ROM Assessment Within Functional Limits Strength Lower Extremity Strength Assessment Bilaterally Impaired Hip 3-/5 Knee 3-/5 Comments Strength Comments pain limiting movement on BLE Sensation Assessment Sensation Gross Sensation Left LE Impaired Sensation Description Numbness Comments Sensation Comments c/o numbness on RLE M6 PT-IP Treatment Start: 05/27/18 14:21 Freq: NEEDED Status: Active Protocol: Document 05/27/18 13:30 AB (Rec: 05/27/18 15:12 AB [id number]) Physical Therapy Treatment Education Education Provided Precautions Weight Bearing Status Post-Op Packet Safety M7 PT-IP Assessment and Plan Start: 05/27/18 14:21 Freq: NEEDED Status: Active Protocol: Document 05/28/18 09:35 [facility] (Rec: 05/28/18 11:04 [facility] [id number]) PT Summary Assessment and Plan Summary Impairments Pain ROM Strength Balance Coordination Sensation Tone Bed Mobility Transfers Gait Activity Tolerance Assessment Summary Pt improved with all mobility able to get OOB with Mod A x1 and ambulate ~25ft with FWW/ CGA. Depending on pt progress may be able to d/c home with 24/7 assist. present during tx and was able to appropriately assist pt. Pt may stay in mothers home rather than [facility] where she will be able to use FWW and have no stairs to enter home. Goals Bed Mobility Goal Standby Assistance Transfer Goal Standby Assistance Front Wheeled Walker Gait Goal Standby Assistance Front Wheel Walker Gait Distance 150 Other Goals up/down 5 steps with L rail ascending CGA Days to Meet Goals 5 Frequency of Treatment Frequency Of Treatment Twice a Day Treatment Plan Physical Therapy Treatment Plan Bed Mobility Training Transfer Training Gait Training Therapeutic Exercise Balance Retraining Post Op Education Discharge Planning Hot or Cold Pack Neuromuscular Re-ed Coordination Retraining Manual Therapy Other Recommendations and Next Treatment transfers, ambulation Focus Recommendations To Nursing Amount of Assist Needed 2 Person Assist Discharge Recommendations PT Discharge Recommendations Home with 24/7 Assist SNF Rehab
--- NOTE | 2018-05-28 13:03 | CM.DPC ---
DCP Cont: Per MD, pt is post op day 2 and not medically stable to d/c yet today and bp issues seem to be improving. Per PT, recommending possible home to pt's mother's house with 24/7 assist from spouse vs SNF pending progress. SW met bedside with pt and explained role and updated whiteboard and discussed current PT recommendation and pt confirms that they sold their house in [place], [place] and are in the process of building their next home and are living in their motor home at this time. Motor home has been parked outside of pt's mother's house in [place] and they have the option of discharging back to the motor home or inside of her mother's house at d/c with mother and spouse providing assist. Pt states that she does not want to discharge to SNF and preference is home. Plan: SW to follow for further PT to determine if pt continues to progress for safe d/c home to mother's house in [place] with spouse and mother to assist. SW to follow for any further identified discharge planning needs. JACKY Avina
--- NOTE | 2018-05-28 16:00 | PT.IPTN ---
Current Diagnoses Spondylolisthesis, lumbar region (05/26/18) Other spondylosis with radiculopathy, lumbar region (05/26/18) Spinal stenosis, lumbar region without neurogenic claudication (05/26/18) Arthrodesis status (05/26/18) Surgery Performed Operation Date: 05/26/18 12:45 Actual Procedures p L4-5, L5-S1 TLIF w/Posterior Instru. - Jad Bahena MD Physical Therapy Treatment Note M2 PT-IP Current Condition Start: 05/27/18 14:21 Freq: NEEDED Status: Active Protocol: Document 05/27/18 13:30 AB (Rec: 05/27/18 15:12 AB [id number]) Physical Therapy Current Condition Current Condition Evaluation Date 05/27/18 Treatment Diagnosis L4-5, L5S1 posterolateral/last fusion/lami; diff in walking Onset Date 05/26/18 Precautions Lumbar Precautions Log Roll No Twisting Limit Bending Lifting Restriction of 10 lbs Gait Belt above Incisional Area Other Precautions check BP M3 PT-IP Subjective Start: 05/27/18 14:21 Freq: NEEDED Status: Active Protocol: Document 05/28/18 15:25 [facility] (Rec: 05/28/18 16:00 [facility] [id number]) Subjective Physical Therapy Visit Type Type Treatment Note Visit Start Time 13:25 Visit Stop Time 13:50 Total Visit Minutes 25 Number of SUPERVISOR BOTTLE [employer]SE CLEANERS Visits 2 Physical Therapy Visit Comments Patient Comments Pt needing to use toilet. Therapy Pain Assessment Pain When Pain Assessed During Mobility Pain Present Pain Present Pain Reported Location Lower Back Intensity 6 Pain Behaviors Moaning Wincing Pain Management Techniques Apply Cold Modification of Treatment Re-positioning Timing of Activity with Medications M4 PT-IP Mobility and Gait Start: 05/27/18 14:21 Freq: NEEDED Status: Active Protocol: Document 05/28/18 15:25 [facility] (Rec: 05/28/18 16:00 [facility] [id number]) PT-Bed Mobility Assessment Rolling Type of Rolling Log Rolling Roll to Left Level of Assist Moderate Assistance 1 Person Assistance Supine to Sit Supine to Sit Moderate Assistance 1 Person Assistance Head of Bed Elevated Bedrails Sit to Supine Sit to Supine Moderate Assistance 1 Person Assistance Bedrails Scooting Scooting to Edge of Bed Moderate Assistance PT-Transfer Assessment Sit to and From Stand Sit to and from Stand Minimal Assistance 1 Person Assistance Use of Upper Extremities Transfers Transfer Destination Bed Toilet Transfer Technique Stand Step Pivot Transfer Ability Level of Assist Minimal Assistance Comments Mobility Comments Pt continues to need Mod A with all bed mobility. Gait Assessment Gait Gait Assistance Required: Contact Guard Assist 1 Person Assist Distance (Feet) 20 Able to Maintain Weight Bearing Status Yes During Gait Assistive Devices Assistive Device Gait Belt Front Wheeled Walker Orthotic/Prosthetic Devices or Brace: No Gait Deviations General Gait Pattern Antalgic Decreased Stride Length Decreased Feet Clearance Narrow Based Gait Factors Limiting Gait Function Factors Limiting Gait Function Decreased Activity Tolerance Decreased Strength Pain Comments Gait Comments Pt able to ambulate to BR and back to bed. Stair Climbing Assessment Comments Stair Climbing Comments not attempted at this time. M5 PT-IP Objective Assessments Start: 05/27/18 14:21 Freq: NEEDED Status: Active Protocol: Document 05/27/18 13:30 AB (Rec: 05/27/18 15:12 AB [id number]) Orientation Orientation/Cognition Level of Alertness Alert Orientation Name Age Birthday Place Situation Language Function Ability No Deficits Noted Safety Awareness Decreased Safety Awareness Gross Range of Motion Lower Extremity ROM Assessment Within Functional Limits Strength Lower Extremity Strength Assessment Bilaterally Impaired Hip 3-/5 Knee 3-/5 Comments Strength Comments pain limiting movement on BLE Sensation Assessment Sensation Gross Sensation Left LE Impaired Sensation Description Numbness Comments Sensation Comments c/o numbness on RLE M6 PT-IP Treatment Start: 05/27/18 14:21 Freq: NEEDED Status: Active Protocol: Document 05/27/18 13:30 AB (Rec: 05/27/18 15:12 AB [id number]) Physical Therapy Treatment Education Education Provided Precautions Weight Bearing Status Post-Op Packet Safety M7 PT-IP Assessment and Plan Start: 05/27/18 14:21 Freq: NEEDED Status: Active Protocol: Document 05/28/18 15:25 CLB (Rec: 05/28/18 16:00 [facility] [id number]) PT Summary Assessment and Plan Summary Impairments Pain ROM Strength Balance Coordination Sensation Tone Bed Mobility Transfers Gait Activity Tolerance Assessment Summary Pt continues to require Mod A x1 for bed mobility and Min A for sit to stand on off bed and toilet. Pts Carmelo has been present for hospice care transitions coordinator training and is able to assist pt appropriately. Goals Bed Mobility Goal Standby Assistance Transfer Goal Standby Assistance Front Wheeled Walker Gait Goal Standby Assistance Front Wheel Walker Gait Distance 150 Other Goals up/down 5 steps with L rail ascending CGA Days to Meet Goals 5 Frequency of Treatment Frequency Of Treatment Twice a Day Treatment Plan Physical Therapy Treatment Plan Bed Mobility Training Transfer Training Gait Training Therapeutic Exercise Balance Retraining Post Op Education Discharge Planning Hot or Cold Pack Neuromuscular Re-ed Coordination Retraining Manual Therapy Recommendations To Nursing Amount of Assist Needed 2 Person Assist Discharge Recommendations PT Discharge Recommendations Home with 24/ Assist Equipment Needed for Home Before Mother has FWW pt is able to Discharge use.
[2018-05-28] MEDS: OXYCODONE IR 5 MG TABLET PO (17:42)
[2018-05-28] MEDS: diazePAM 5 MG TABLET PO (20:48)
[2018-05-28] MEDS: SENNOSIDES 8.6 MG TABLET 17.2 MG PO (20:48)
[2018-05-28] MEDS: PRAVASTATIN 20 MG TABLET PO (20:49)
--- NOTE | 2018-05-28 23:49 | PC.NURSE ---
Addendum entered by Angely Farias R.N. 05/29/18 06:32: States pain is worsening and now has shooting pain down left leg. Assisted to reposition, ice pack applied to back and medicated with Dilaudid for the breakthrough pain since too early for either Oxycodone or Vistaril. Original Note: Addendum entered by Angely Farias R.N. 05/29/18 05:38: Medicated around 0230 with Oxycodone and 0330 with Vistaril for pain management. Now states pain is 5/10 so medicated again with Oxycodone. Declined offer to assist with repositioning at this time. Original Note: Patient is alert and oriented. Breath sounds CTA with RA sat of 95%. HRR. BP low at 96/57 but has been trending lower and is asymptomatic. Denies nausea. BT present and is passing flatus. Denies dysuria, frequency or urgency and is up to BSC with walker and 1 assist to urinate. Is not able to turn self in bed but requests we not awaken to reposition; she will call when she wants to turn. Dressing to back is CDI. States back pain is currently 4/10 so medicated with Oxycodone + Vistaril and requests to be awakened when pain meds available. Ice applied to back for comfort. CMS intact except for numbness in left lateral thigh. Refusing to wear SCD's so reminded to ankle wave. Fall risk score is low and patient calls for assistance appropriately. Sister, [place], rooming in.
[2018-05-29] MEDS: OXYCODONE IR 10 MG TABLET PO ×7 (02:34→21:59)
[2018-05-29 03:15] VITALS: BP 115/71; PULSE 85; RESP 20; TEMP 36.7; O2SAT 97
[2018-05-29] MEDS: hydrOXYzine pamoate 25 MG CAPSULE 50 MG PO ×4 (03:35→20:13)
[2018-05-29] MEDS: LEVOTHYROXINE 75 MCG TABLET PO (05:36)
[2018-05-29] MEDS: HYDROMORPHONE 2 MG TABLET PO ×3 (06:31→20:14)
--- NOTE | 2018-05-29 07:34 | P.DS_ITS ---
History of Present Illness Date Patient Seen: 05/29/18 Time Patient Seen: 07:19 Chief complaint: [id number] Lumbar Narrative: Patient seen bedside s/p L4-5, L5-S1 Postero-lateral and posterior interbody fusion with interbody cage placement, decompressive laminectomy and bilateral facetecomies POD #3. Patient is doing better, her pain is better controlled today. She has a history of chronic pain and has a pain management contract with her PCP in [facility]. She is in this area until at least the 29 and will need pain medication. She denies numbness/tingling but complains of right sided leg pain since surgery. She has been working with PT and is recommended for discharge home. She denies CP, SOB, and calf pain. Discharge Providers Date of admission: 05/26/18 10:44 Consults: 05/26/18 18:39 Consult to Occupational Therapy Evaluate & Treat Comment: Physician Instructions: Evaluate and treat Consult to Physical Therapy Evaluate & Treat Comment: Physician Instructions: Evaluate and Treat Discharge provider: Taniya Albrecht PA-C Discharge Date: 05/29/18 Summary Discharge Diagnosis: 1. L4-5, L5-S1 history of laminectomy 2. L4-5 pseudoarthrosis with hx of fusion 3. L4-5, L5-S1 spinal stenosis Hospital Course: Patient was admitted to the hospital s/p L4-5, L5-S1 Postero- lateral and posterior interbody fusion with interbody cage placement, decompressive laminectomy and bilateral facetecomies on 05/26/[address] Bahena. Patient tolerated the procedure well with no major complications. She was transitioned to the acute care floor where she was placed on the standard lumbar fusion protocol. She did have some difficulty with pain control over the , but this had improved by 05/29/18. She was seen by PT who recommended that she be discharged home. Patient was stable and ready for discharge on 05/29/18. Status at Discharge Cognitive/behavioral status at discharge: A&Ox3 Functional status at discharge: uses cane/walker Overall status at discharge: patient is progressing back to baseline Time Spent with Patient Less than 30 minutes Exam Vital Signs (past 8 hours): - 05/29/18 03:15 Temperature 98.1 F Pulse Rate 85 Respiratory Rate 20 Blood Pressure 115/71 Pulse Oximetry 97 Oxygen Delivery Method Room Air Oxygen Flow Rate 0 Narrative Exam Narrative: WDWN NAD A&Ox3. Dressing on lumbar spine is CDI, no signs of drainage. Calves are soft and compressible, BLE are NVI with no focal deficits noted. Objective Labs Result Diagrams: 05/28/18 05:41 Discharge Plan Discharge Plan Patient Disposition: Home Discharge comment: d/c if cleared by PT Discharge Med Rec/Prescriptions Prescriptions: New acetaminophen 325 mg Tablet 975 mg PO TID Qty: 0 RF: 0 docusate sodium 100 mg Capsule 100 mg PO BID Qty: 0 RF: 0 hydroxyzine pamoate 25 mg Capsule 50 mg PO Q4HR PRN (Reason: Muscle Spasm) Qty: 40 RF: 0 hydromorphone [Dilaudid] 2 mg tablet 2 mg PO Q4-6H PRN (Reason: pain) Qty: 40 RF: 0 diazepam 5 mg Tablet 5 mg PO Q6HR PRN (Reason: Anxiety) Qty: 25 RF: 0 oxycodone [OxyContin] 10 mg Tablet,Oral Only,Ext.Rel.12 Hr 10 mg PO BID Qty: 10 RF: 0 Continue cyclobenzaprine 10 mg Tablet 20 mg PO BEDTIME RF: 0 losartan-hydrochlorothiazide 100-25 mg Tablet 1 tab PO DAILY RF: 0 pravastatin 20 mg Tablet 20 mg PO BEDTIME RF: 0 levothyroxine 75 mcg Capsule 75 mcg PO DAILY RF: 0 Discontinued hydrocodone-acetaminophen 10-325 mg Tablet 1 tab PO QID RF: 0 Follow up/Referrals: Jad Bahena MD [Physician] - (Follow up in 2 weeks' time at your previously scheduled surgery.) Provider Discharge Instructions Diet: Diet as Tolerated Activity: Weightbearing as tolerated, use walker until more stable. No lifting greater than 5 lbs, no twisting/bending. Cold/Heat Therapy: Apply ice 20 minutes at a time to surgical site at least hourly while awake as needed for swelling Other treatments: Wean down pain medication as you can. Try to get off the long acting oxycodone as quickly as possible. Skin/Wound/Dressing Care Report to your healthcare provider any signs of infection, such as:: chills, fever, night sweats, increased pain, unusual drainage and unusual redness Dressing: Keep dressing clean, dry, and intact. May shower with dressing in place. Visit Report/Discharge Packet Instructions: DI for Transforaminal Lumbar Interbody Fusion Discharge Data Attending Provider: Jad Bahena Admit Date/Time: 05/26/18 10:44 Quality VTE Deep Vein Thrombosis/Pulmonary Embolism Present on Admission: No
[2018-05-29 07:40] VITALS: BP 105/60; PULSE 93; RESP 20; TEMP 37.3; O2SAT 96
[2018-05-29] MEDS: ACETAMINOPHEN 325 MG TABLET 975 MG PO ×3 (09:13→21:25)
[2018-05-29] MEDS: FERROUS SULFATE 325 MG TABLET PO ×2 (09:13→17:32)
[2018-05-29] MEDS: hydroCHLOROthiazide 25 MG TABLET PO (09:13)
[2018-05-29] MEDS: DOCUSATE 100 MG CAPSULE PO ×2 (09:13→21:27)
[2018-05-29] MEDS: ASCORBIC ACID 500 MG TABLET PO ×2 (09:13→17:32)
[2018-05-29] MEDS: OXYCODONE ER 10 MG TAB PO ×2 (09:14→21:25)
[2018-05-29] MEDS: LOSARTAN 50 MG TABLET 100 MG PO (09:14)
--- NOTE | 2018-05-29 09:34 | PT.IPTN ---
Current Diagnoses Spondylolisthesis, lumbar region (05/26/18) Other spondylosis with radiculopathy, lumbar region (05/26/18) Spinal stenosis, lumbar region without neurogenic claudication (05/26/18) Arthrodesis status (05/26/18) Surgery Performed Operation Date: 05/26/18 12:45 Actual Procedures p L4-5, L5-S1 TLIF w/Posterior Instru. - Jad Bahena MD Physical Therapy Treatment Note M2 PT-IP Current Condition Start: 05/27/18 14:21 Freq: NEEDED Status: Active Protocol: Document 05/27/18 13:30 AB (Rec: 05/27/18 15:12 AB [id number]) Physical Therapy Current Condition Current Condition Evaluation Date 05/27/18 Treatment Diagnosis L4-5, L5S1 posterolateral/last fusion/lami; diff in walking Onset Date 05/26/18 Precautions Lumbar Precautions Log Roll No Twisting Limit Bending Lifting Restriction of 10 lbs Gait Belt above Incisional Area Other Precautions check BP M3 PT-IP Subjective Start: 05/27/18 14:21 Freq: NEEDED Status: Active Protocol: Document 05/29/18 09:10 RS (Rec: 05/29/18 09:34 RS [id number]) Subjective Physical Therapy Visit Type Type Treatment Note Visit Start Time 08:30 Visit Stop Time 09:09 Total Visit Minutes 39 Physical Therapy Visit Comments Patient Comments Pt reports being in too much pain and feels too weak to be able to go home today. Therapy Pain Assessment Pain When Pain Assessed During Mobility Pain Present Pain Present Pain Reported Location Lower Back Intensity 9 Scale Used Numeric (1 - 10) Pain Behaviors Facial Grimacing Guarding Wincing Pain Management Techniques Apply Cold Modification of Treatment Re-positioning Timing of Activity with Medications M4 PT-IP Mobility and Gait Start: 05/27/18 14:21 Freq: NEEDED Status: Active Protocol: Document 05/29/18 09:10 RS (Rec: 05/29/18 09:34 RS [id number]) PT-Bed Mobility Assessment Rolling Type of Rolling Log Rolling Level of Assist Moderate Assistance Scooting Scooting Up and Down in Bed Dependent PT-Transfer Assessment Comments Mobility Comments Pt appears at the same level of function as yesterday, but very adamant that she doesn't want to roll on a flat/level bed. Pt demanding to use tilting features of the bed to help with bed mobility. Patient does not have this available at home. M5 PT-IP Objective Assessments Start: 05/27/18 14:21 Freq: NEEDED Status: Active Protocol: Document 05/27/18 13:30 AB (Rec: 05/27/18 15:12 AB [id number]) Orientation Orientation/Cognition Level of Alertness Alert Orientation Name Age Birthday Place Situation Language Function Ability No Deficits Noted Safety Awareness Decreased Safety Awareness Gross Range of Motion Lower Extremity ROM Assessment Within Functional Limits Strength Lower Extremity Strength Assessment Bilaterally Impaired Hip 3-/5 Knee 3-/5 Comments Strength Comments pain limiting movement on BLE Sensation Assessment Sensation Gross Sensation Left LE Impaired Sensation Description Numbness Comments Sensation Comments c/o numbness on RLE M6 PT-IP Treatment Start: 05/27/18 14:21 Freq: NEEDED Status: Active Protocol: Document 05/27/18 13:30 AB (Rec: 05/27/18 15:12 AB [id number]) Physical Therapy Treatment Education Education Provided Precautions Weight Bearing Status Post-Op Packet Safety M7 PT-IP Assessment and Plan Start: 05/27/18 14:21 Freq: NEEDED Status: Active Protocol: Document 05/29/18 09:10 RS (Rec: 05/29/18 09:34 RS [id number]) PT Summary Assessment and Plan Summary Progress Towards Goals Slow Progress due to Pain Assessment Summary Pt is roughly at the same level of function as yesterday but seems to be experiencing more pain today. It would be safer to allow pt to stay an additional day for further medical management as well as giving pt more opportunities to mobilize in a controlled environment with therapy and nursing staff. Patient and ortho PA in agreement w/ this plan. Pt will still need 24/7 assist and HHPT. Goals Bed Mobility Goal Minimal Assistance Transfer Goal Standby Assistance Front Wheeled Walker Gait Goal Standby Assistance Front Wheel Walker Gait Distance 50 Other Goals up/down 5 steps with L rail ascending CGA Days to Meet Goals 1 Frequency of Treatment Frequency Of Treatment Twice a Day Treatment Plan Physical Therapy Treatment Plan Bed Mobility Training Transfer Training Gait Training Therapeutic Exercise Balance Retraining Post Op Education Discharge Planning Hot or Cold Pack Neuromuscular Re-ed Coordination Retraining Manual Therapy Other Recommendations and Next Treatment continue to slowly progress Focus mobility Recommendations To Nursing Amount of Assist Needed 2 Person Assist Discharge Recommendations PT Discharge Recommendations Home with 24/7 Assist Home Health Equipment Needed for Home Before Mother has FWW pt is able to Discharge use.
--- NOTE | 2018-05-29 12:26 | OT.IP.TRT ---
Current Diagnoses Spondylolisthesis, lumbar region (05/26/18) Other spondylosis with radiculopathy, lumbar region (05/26/18) Spinal stenosis, lumbar region without neurogenic claudication (05/26/18) Arthrodesis status (05/26/18) Surgery Performed Operation Date: 05/26/18 12:45 Actual Procedures p L4-5, L5-S1 TLIF w/Posterior Instru. - Jad Bahena MD Occupational Therapy Treatment Note M2 OT-IP Current Condition Start: 05/27/18 15:50 Freq: Status: Active Protocol: Document 05/27/18 15:50 [facility] (Rec: 05/27/18 16:22 [facility] [id number]) Occupational Therapy Current Condition Current Condition Evaluation Date 05/27/18 Treatment Diagnosis Lumbar Stenosis Diagnosis Onset Date 05/26/18 M3 OT- IP Subjective and Pain Start: 05/27/18 15:50 Freq: Status: Active Protocol: Document 05/29/18 12:22 [facility] (Rec: 05/29/18 12:26 [facility] [id number]) OT- Subjective Occupational Therapy Visit Type Type Treatment Note Visit Start Time 09:10 Visit Stop Time 09:15 Total Visit Minutes 8 Notes Touch base with pt at lunch time for a few minutes as well , regarding ADl needs. Occupational Therapy Visit Comments Patient Comments Pt not wanting to get up at this time due to just got back in bed with PT and eating lunch when attempted 2nd time. OT Pain Assessment Pain When Pain Assessed At Rest Pain Present Pain Present Denied Pain M4 OT- IP ADL's Start: 05/27/18 15:50 Freq: Status: Active Protocol: Document 05/29/18 12:22 [facility] (Rec: 05/29/18 12:26 [facility] [id number]) OT [id number] Comments OT Self-Feeding Comments Educated to try to sit upright in the bed for eating as pt currently insisting on lying in sidelying to eat her meal. OT ADL-Oral Care Comments Oral Care Comments Spoke of use of AED for LB dressing, standing for pericare needs, and may need use of tub bench/shower chair pending if she is able to lift her legs over the tub in order to shower. Set time with pt for showering tomorrow with and OT for training 930AM. OT ADL-Toileting Comments OT Toileting Comments Pt would benefit from BSC at home. Document 05/27/18 15:50 [facility] (Rec: 05/27/18 16:22 [facility] [id number]) OT Summary Assessment and Plan Potential Rehabilitation Potential Fair Analytic Complexity at Evaluation Low Summary OT Impairments Pain Strength Balance Functional Cognition Functional Mobility Grooming Dressing Toileting Bathing Toilet Transfers Shower Transfers Progress Towards Goals Slow Progress due to Pain Slow Progress due to Medical Issues Slow Progress due to Activity Tolerance Assessment Summary Pt low complexity dong better and has been participation in family training with PT and now looking to go home tomorrow. Goals Grooming Goal SBA Assistance Dressing Goal MIN Assistance Toileting Goal MIN Assistance Bathing Goal Moderate Assistance Toilet Transfer Goal SBA Assistance Shower Transfer Goal MIN Assistance Patient/Caregiver Education Goal Demonstrate Post-Op Precautions Caregiver Independent Assisting Patient Days to Meet Goals 3 Frequency of Treatment Frequency Of Treatment Once a Day Treatment Plan OT Treatment Plan ADL Training Functional Cognition Training Functional Mobility Patient/Family Education Discharge Planning Other Treatment Recommendations and Next Treatment Focus SHowering and family training with . Discharge Recommendations OT Discharge Recommendations Home with 29/11 assist Home Equipment Needs To be determined pending progress.
[2018-05-29 13:05] VITALS: BP 106/63; PULSE 78; RESP 16; TEMP 36.5; O2SAT 100
--- NOTE | 2018-05-29 13:41 | PC.NURSE ---
Pt up to bathroom and chair with assistance. PT and pt both agree that she is not ready to discharge today due to pain and mobility issues. Given pain meds as scheduled and pain now down from 7 to 3. Dressing to lower back CDI. Plan for dc home tomorrow with to care for her.
--- NOTE | 2018-05-29 14:18 | PT.IPTN ---
Current Diagnoses Spondylolisthesis, lumbar region (05/26/18) Other spondylosis with radiculopathy, lumbar region (05/26/18) Spinal stenosis, lumbar region without neurogenic claudication (05/26/18) Arthrodesis status (05/26/18) Surgery Performed Operation Date: 05/26/18 12:45 Actual Procedures p L4-5, L5-S1 TLIF w/Posterior Instru. - Jad Bahena MD Physical Therapy Treatment Note M2 PT-IP Current Condition Start: 05/27/18 14:21 Freq: NEEDED Status: Active Protocol: Document 05/27/18 13:30 AB (Rec: 05/27/18 15:12 AB [id number]) Physical Therapy Current Condition Current Condition Evaluation Date 05/27/18 Treatment Diagnosis L4-5, L5S1 posterolateral/last fusion/lami; diff in walking Onset Date 05/26/18 Precautions Lumbar Precautions Log Roll No Twisting Limit Bending Lifting Restriction of 10 lbs Gait Belt above Incisional Area Other Precautions check BP M3 PT-IP Subjective Start: 05/27/18 14:21 Freq: NEEDED Status: Active Protocol: Document 05/29/18 13:40 [facility] (Rec: 05/29/18 14:18 [facility] [id number]) Subjective Physical Therapy Visit Type Type Treatment Note Visit Start Time 13:40 Visit Stop Time 14:05 Total Visit Minutes 25 Number of DEVELOPMENT TECHNICAL LEAD Visits 1 Physical Therapy Visit Comments Patient Comments Pt agreeable to ambulate in bailey. Therapy Pain Assessment Pain When Pain Assessed During Mobility Pain Present Pain Present Pain Reported M4 PT-IP Mobility and Gait Start: 05/27/18 14:21 Freq: NEEDED Status: Active Protocol: Document 05/29/18 13:40 [facility] (Rec: 05/29/18 14:18 [facility] [id number]) PT-Transfer Assessment Sit to and From Stand Sit to and from Stand Contact Guard Assistance Use of Upper Extremities Transfers Transfer Destination Bedside Commode Comments Mobility Comments Pt able to stand CGA from [facility] where she prefers to sit instead of recliner for comfort. Gait Assessment Gait Gait Assistance Required: Standby Assistance Distance (Feet) 125 Able to Maintain Weight Bearing Status Yes During Gait Assistive Devices Assistive Device Gait Belt Front Wheeled Walker Orthotic/Prosthetic Devices or Brace: No Gait Deviations General Gait Pattern Decreased Stride Length Decreased Feet Clearance Narrow Based Gait Factors Limiting Gait Function Factors Limiting Gait Function Decreased Activity Tolerance Decreased Strength Pain Comments Gait Comments Pt ambulated in bailey ~125ft SBA, pt moves slowly with small step through gait pattern with good safety awareness and balance. Stair Climbing Assessment Comments Stair Climbing Comments Pt will be staying in mothers home where there are no steps to enter and not stairs inside . M5 PT-IP Objective Assessments Start: 05/27/18 14:21 Freq: NEEDED Status: Active Protocol: Document 05/27/18 13:30 AB (Rec: 05/27/18 15:12 AB [id number]) Orientation Orientation/Cognition Level of Alertness Alert Orientation Name Age Birthday Place Situation Language Function Ability No Deficits Noted Safety Awareness Decreased Safety Awareness Gross Range of Motion Lower Extremity ROM Assessment Within Functional Limits Strength Lower Extremity Strength Assessment Bilaterally Impaired Hip 3-/5 Knee 3-/5 Comments Strength Comments pain limiting movement on BLE Sensation Assessment Sensation Gross Sensation Left LE Impaired Sensation Description Numbness Comments Sensation Comments c/o numbness on RLE M6 PT-IP Treatment Start: 05/27/18 14:21 Freq: NEEDED Status: Active Protocol: Document 05/27/18 13:30 AB (Rec: 05/27/18 15:12 AB [id number]) Physical Therapy Treatment Education Education Provided Precautions Weight Bearing Status Post-Op Packet Safety M7 PT-IP Assessment and Plan Start: 05/27/18 14:21 Freq: NEEDED Status: Active Protocol: Document 05/29/18 13:40 [facility] (Rec: 05/29/18 14:18 CLB [id number]) PT Summary Assessment and Plan Summary Progress Towards Goals Progressing Toward Goals Assessment Summary Pt improved with ambulation distance requiring SBA and sit to stand requiring CGA. Goals Bed Mobility Goal Minimal Assistance Transfer Goal Standby Assistance Front Wheeled Walker Gait Goal Standby Assistance Front Wheel Walker Gait Distance 50 Other Goals up/down 5 steps with L rail ascending CGA Days to Meet Goals 1 Frequency of Treatment Frequency Of Treatment Twice a Day Treatment Plan Physical Therapy Treatment Plan Bed Mobility Training Transfer Training Gait Training Therapeutic Exercise Balance Retraining Post Op Education Discharge Planning Hot or Cold Pack Neuromuscular Re-ed Coordination Retraining Manual Therapy Other Recommendations and Next Treatment bed mobility and ambulation Focus Recommendations To Nursing Amount of Assist Needed 1 Person Assist Discharge Recommendations PT Discharge Recommendations Home with 29/11 Assist Home Health Equipment Needed for Home Before Mother has FWW pt is able to Discharge use.
--- NOTE | 2018-05-29 15:25 | CM.DPC ---
DCP/continued: Reviewed chart. Met with patient and spouse/Caremlo at bedside explained role. Per patient current d/c plan is for her to go to her Mother's residence in [place] tomorrow 05-30-18. Spouse confirms plan. Patient reports that she has needed DME. Spouse is bringing walker with him tomorrow so patient will have at time of d/c. No additional needs identified. P: Home/Family when medically stable. Hopefully tomorrow 05-30-18. JACKY Jaffe
[2018-05-29 16:31] VITALS: BP 104/62; PULSE 83; RESP 20; TEMP 37; O2SAT 98
[2018-05-29 20:25] VITALS: BP 109/64; PULSE 81; RESP 18; TEMP 36.6; O2SAT 98
[2018-05-29] MEDS: SENNOSIDES 8.6 MG TABLET 17.2 MG PO (21:27)
[2018-05-29] MEDS: PRAVASTATIN 20 MG TABLET PO (21:27)
[2018-05-29] MEDS: diazePAM 5 MG TABLET PO (21:59)
[2018-05-29 23:49] VITALS: BP 99/55; PULSE 78; RESP 19; TEMP 36.8; O2SAT 97
[2018-05-30] MEDS: hydrOXYzine pamoate 25 MG CAPSULE 50 MG PO ×3 (01:07→10:22)
[2018-05-30] MEDS: OXYCODONE IR 10 MG TABLET PO ×4 (01:07→10:22)
--- NOTE | 2018-05-30 01:26 | PC.NURSE ---
Addendum entered by Angely Farias R.N. 05/30/18 04:09: States pain currently 4/10 tender to back; medicated with Oxycodone and requests to be awakened for Vistaril when it is available. Original Note: Patient is alert and oriented. Breath sounds CTA with RA sat of 98%. HRR. BP continues to trend low at 99/55 but remains asymptomatic. Denies nausea. BT present and is passing flatus but has not had BM since 05/26; declines offer of prune juice or MOM. Denies dysuria, frequency or urgency. Up to [facility] with 1 assist + walker but is doing better with being able to reposition self. Assisted to turn upon request. Pain is currently 2/10 but insists on taking both Oxycodone 10mg + 50mg Vistaril for continued pain management. Still having numbness in left lateral thigh but other CMS is intact. Refuses SCD's. Fall risk score is low; patient requests assistance appropriately and does not attemp to get OOB without help. Expects to discharge in a.m.
[2018-05-30 03:50] VITALS: BP 99/57; PULSE 92; RESP 18; TEMP 36.6; O2SAT 96
[2018-05-30] MEDS: LEVOTHYROXINE 75 MCG TABLET PO (05:28)
[2018-05-30 08:00] VITALS: BP 111/66; PULSE 83; RESP 24; TEMP 37; O2SAT 98
[2018-05-30] MEDS: OXYCODONE ER 10 MG TAB PO (08:19)
[2018-05-30] MEDS: ACETAMINOPHEN 325 MG TABLET 975 MG PO (08:19)
[2018-05-30] MEDS: LOSARTAN 50 MG TABLET 100 MG PO (08:20)
[2018-05-30] MEDS: FERROUS SULFATE 325 MG TABLET PO (08:20)
[2018-05-30] MEDS: hydroCHLOROthiazide 25 MG TABLET PO (08:20)
[2018-05-30] MEDS: DOCUSATE 100 MG CAPSULE PO (08:20)
[2018-05-30] MEDS: ASCORBIC ACID 500 MG TABLET PO (08:20)
--- NOTE | 2018-05-30 10:56 | PC.NURSE ---
Day Shift Pt is A&O able to make needs known. Pt showered with OT dressing changed with to back with cover site, no s/sx of infection. reviewed d/c instructions with pt and spouse, reviewed medications with last dose, scripts given. Reviewed precaution, no lifting more then 10 lb. drink plenty of fluids and take stool softener, get off of long acting oxycotine as soon as possible. reviewed s/sx of infection and when to contact md. answered all questions and concerns. pt assisted out by this RN to spouses truck and he assisted her in. left with all personal belongings.
--- NOTE | 2018-05-30 10:58 | PT.IPTN ---
Current Diagnoses Spondylolisthesis, lumbar region (05/26/18) Other spondylosis with radiculopathy, lumbar region (05/26/18) Spinal stenosis, lumbar region without neurogenic claudication (05/26/18) Arthrodesis status (05/26/18) Surgery Performed Operation Date: 05/26/18 12:45 Actual Procedures p L4-5, L5-S1 TLIF w/Posterior Instru. - Jad Bahena MD Physical Therapy Treatment Note M2 PT-IP Current Condition Start: 05/27/18 14:21 Freq: NEEDED Status: Active Protocol: Document 05/27/18 13:30 AB (Rec: 05/27/18 15:12 AB [id number]) Physical Therapy Current Condition Current Condition Evaluation Date 05/27/18 Treatment Diagnosis L4-5, L5S1 posterolateral/last fusion/lami; diff in walking Onset Date 05/26/18 Precautions Lumbar Precautions Log Roll No Twisting Limit Bending Lifting Restriction of 10 lbs Gait Belt above Incisional Area Other Precautions check BP M3 PT-IP Subjective Start: 05/27/18 14:21 Freq: NEEDED Status: Active Protocol: Document 05/30/18 09:10 [facility] (Rec: 05/30/18 10:58 [facility]B [id number]) Subjective Physical Therapy Visit Type Type Treatment Note Visit Start Time 09:10 Visit Stop Time 09:36 Total Visit Minutes 26 Number of [employer]ADEMIC SUPPORT DIRECTOR Visits 2 Physical Therapy Visit Comments Patient Comments Pt agreeable to ambulate in bailey present for CG training. Therapy Pain Assessment Pain When Pain Assessed During Mobility Pain Present Pain Present Pain Reported Location Lower Back Intensity 6 Scale Used Numeric (1 - 10) Pain Behaviors Facial Grimacing Guarding Wincing Pain Management Techniques Apply Cold Modification of Treatment Re-positioning Timing of Activity with Medications M4 PT-IP Mobility and Gait Start: 05/27/18 14:21 Freq: NEEDED Status: Active Protocol: Document 05/30/18 09:10 [facility] (Rec: 05/30/18 10:58 [facility] [id number]) PT-Bed Mobility Assessment Rolling Type of Rolling Log Rolling Level of Assist Contact Guard Assistance 1 Person Assistance Supine to Sit Supine to Sit Contact Guard Assistance Minimal Assistance 1 Person Assistance Sit to Supine Sit to Supine Contact Guard Assistance 1 Person Assistance Scooting Scooting to Edge of Bed Contact Guard Assistance PT-Transfer Assessment Sit to and From Stand Sit to and from Stand Standby Assistance Use of Upper Extremities Equipment Transfer Assistive Device Gait Belt Front Wheeled Walker Transfers Transfer Destination Bed Bedside Commode Transfer Technique Stand Step Pivot Transfer Ability Level of Assist Standby Assistance Comments Mobility Comments Pt improved with all bed mobility and sit-stand requiring CGA for sup<>sit with Min A of LE onto bed. Gait Assessment Gait Gait Assistance Required: Standby Assistance Distance (Feet) 150 Able to Maintain Weight Bearing Status Yes During Gait Assistive Devices Orthotic/Prosthetic Devices or Brace: No Gait Deviations General Gait Pattern Decreased Stride Length Decreased Feet Clearance Narrow Based Gait Factors Limiting Gait Function Factors Limiting Gait Function Decreased Activity Tolerance Decreased Strength Pain Stair Climbing Assessment Comments Stair Climbing Comments Pt will be staying in mothers home where there are no steps to enter and not stairs inside . M5 PT-IP Objective Assessments Start: 05/27/18 14:21 Freq: NEEDED Status: Active Protocol: Document 05/27/18 13:30 AB (Rec: 05/27/18 15:12 AB [id number]) Orientation Orientation/Cognition Level of Alertness Alert Orientation Name Age Birthday Place Situation Language Function Ability No Deficits Noted Safety Awareness Decreased Safety Awareness Gross Range of Motion Lower Extremity ROM Assessment Within Functional Limits Strength Lower Extremity Strength Assessment Bilaterally Impaired Hip 3-/5 Knee 3-/5 Comments Strength Comments pain limiting movement on BLE Sensation Assessment Sensation Gross Sensation Left LE Impaired Sensation Description Numbness Comments Sensation Comments c/o numbness on RLE M6 PT-IP Treatment Start: 05/27/18 14:21 Freq: NEEDED Status: Active Protocol: Document 05/27/18 13:30 AB (Rec: 05/27/18 15:12 AB [id number]) Physical Therapy Treatment Education Education Provided Precautions Weight Bearing Status Post-Op Packet Safety M7 PT-IP Assessment and Plan Start: 05/27/18 14:21 Freq: NEEDED Status: Active Protocol: Document 05/30/18 09:10 CLB (Rec: 05/30/18 10:58 CLB [id number]) PT Summary Assessment and Plan Summary Progress Towards Goals Progressing Toward Goals Assessment Summary Pt continues to improve with gait distance, bed mobility and sit<>stand. Pt's Carmelo was present for CG training and is very attentive and assisted pt with transfers appropriately and safely. Pt seems able to d/c home with assist when medically stable. Goals Bed Mobility Goal Minimal Assistance Transfer Goal Standby Assistance Front Wheeled Walker Gait Goal Standby Assistance Front Wheel Walker Other Goals up/down 5 steps with L rail ascending CGA Days to Meet Goals 1 Frequency of Treatment Frequency Of Treatment Twice a Day Treatment Plan Physical Therapy Treatment Plan Bed Mobility Training Transfer Training Gait Training Therapeutic Exercise Balance Retraining Post Op Education Discharge Planning Hot or Cold Pack Neuromuscular Re-ed Coordination Retraining Manual Therapy Recommendations To Nursing Amount of Assist Needed 1 Person Assist Discharge Recommendations PT Discharge Recommendations Home with 29/11 Assist
--- NOTE | 2018-06-02 14:25 | OT.IP.TRT ---
Current Diagnoses Chronic pain syndrome (05/26/18) Spondylolisthesis, lumbar region (05/26/18) Other spondylosis with radiculopathy, lumbar region (05/26/18) Spinal stenosis, lumbar region without neurogenic claudication (05/26/18) Spinal stenosis, lumbosacral region (05/26/18) Pseudarthrosis after fusion or arthrodesis (05/26/18) Surgery Performed Operation Date: 05/26/18 12:45 Actual Procedures p L4-5, L5-S1 TLIF w/Posterior Instru. - Jad Bahena MD Occupational Therapy Treatment Note M3 OT- IP Subjective and Pain Start: 05/27/18 15:50 Freq: Status: Active Protocol: Document 05/30/18 09:35 [facility] (Rec: 06/02/18 14:25 [facility] [id number]) OT- Subjective Occupational Therapy Visit Type Type Treatment Note Visit Start Time 09:35 Visit Stop Time 10:05 Total Visit Minutes 30 Occupational Therapy Visit Comments Patient Comments Pt wanting to shower prior to going home. OT Pain Assessment Pain When Pain Assessed At Rest Pain Present Pain Present Denied Pain M4 OT- IP ADL's Start: 05/27/18 15:50 Freq: Status: Active Protocol: Document 05/30/18 09:35 [facility] (Rec: 06/02/18 14:25 [facility] [id number]) OT ADL-Dressing General Eval Upper Body Dressing Ability Standby Assistance Lower Body Dressing Ability Moderate Assistance Comments OT Dressing Comments Pt needing assist for socks and shoes. OT ADL-Bathing Bathing Type Bathing Type Shower General Evaluation Bathing Ability Moderate Assistance Areas Needing Assistance Wash/Dry Upper Body Wash/Dry Perineal Area Wash/Dry Lower Extremities Comments OT Bathing Comments able to assist pt for all showering needs with good safety. M7 OT- IP Mobility and Balance Start: 05/27/18 15:50 Freq: Status: Active Protocol: Document 05/30/18 09:35 [facility] (Rec: 06/02/18 14:25 [facility] [id number]) OT- Bed Mobility Assessment Rolling Type of Rolling Roll to Left Level of Assistance Standby Assistance Supine to Sit Supine to Sit Assist Standby Assistance Sit to Supine Sit to Supine Assist Standby Assistance OT-Transfer Assessment Sit to and From Stand Sit to and from Stand Standby Assistance Transfers Transfer Ability Standby Assistance Technique Transfer Destination Shower Stall Transfer Technique Stand Step Pivot Devices Transfer Assistive Devices Gait Belt Front Wheeled Walker OT- Balance Assessment Sitting Balance and Reactions Static Sitting Balance Ability Normal Dynamic Sitting Balance Ability Normal Standing Balance and Reactions Static Standing Balance Ability Good M9 OT- IP Assessment and Plan Start: 05/27/18 15:50 Freq: Status: Active Protocol: Document 05/30/18 09:35 [facility] (Rec: 06/02/18 14:25 [facility] [id number]) OT Summary Assessment and Plan Potential Rehabilitation Potential Good Analytic Complexity at Evaluation Low Summary Progress Towards Goals Progressing Toward Goals Assessment Summary Pt doing well today and able to complete all OT training for pt needs for back precautions, ADl's and functional mobility. Pt to go home today. Goals Days to Meet Goals 1 Frequency of Treatment Frequency Of Treatment Once a Day Treatment Plan OT Treatment Plan Patient/Family Education Discharge Planning Discharge Recommendations OT Discharge Recommendations Home with Assistance
== END 2018-05-30 10:40 | disposition home or self-care (01) | DRG 454 ==
PROVIDERS: Physician Assistant Surgical; Admitting Provider Orthopaedic Surgery Orthopaedic Surgery of the Spine; Visit Provider Orthopaedic Surgery Orthopaedic Surgery of the Spine
PROC: 0SG00AJ Fusion of Lumbar Vertebral Joint with Interbody Fusion Device, Posterior Approach, Anterior Column, Open Approach (ICD-10-PCS; principal; 2018-05-26 12:45)
DX: M47.26 Other spondylosis with radiculopathy, lumbar region (principal); M96.0 Pseudarthrosis after fusion or arthrodesis; M48.061 Spinal stenosis, lumbar region without neurogenic claudication; M43.16 Spondylolisthesis, lumbar region; M48.07 Spinal stenosis, lumbosacral region; G89.4 Chronic pain syndrome
CPT/HCPCS: 36415; 72100; 76000; 85014; 85018; 85027; 93005; 97116; 97162; 97165; 97530; 97535; C1776; C9290; J0330; J0690; J1170; J2060; J2250; J2704; J3010; J3410